=== PATIENT | male | born 1960 | race Hispanic/Latino ===

== ENCOUNTER 2023-05-18 15:05 | Emergency (ER) | payer OTHER ==
[~2023-05-18] VITALS: Ht 177.8 cm; Wt 90.7 kg
[~2023-05-18 15:05] MED LIST: METO25 PO
[2023-05-18] MEDS ORDERED: AZITHROMYCIN 250 MG TABLET PO ONE (17:00)
[2023-05-18 17:06] LABS: BASOPHILS % (AUTO) 0.7 % (0.0-5.0); EOSINOPHILS % (AUTO) 4.9 % (0.0-8.0); HEMATOCRIT 42.9 % (42-54); LYMPHOCYTES % (AUTO) 30.4 % (21.0-51.0); MEAN CORPUSCULAR HEMOGLOBIN 29.8 pg (27.0-33.0); MEAN CORPUSCULAR HGB CONC 33.8 g/dL (32.0-36.0); MEAN CORPUSCULAR VOLUME 88.1 fL (79-99); MONOCYTES % (AUTO) 9.7 % (3.0-13.0); NEUTROPHILS % (AUTO) 53.8 % (40.0-77.0); PLATELET COUNT (AUTO) 315 K/uL (130-400); RED BLOOD CELL COUNT(AUTO) 4.87 MIL/uL (4.50-6.20); RED CELL DISTRIBUTION WIDTH 12.2 % (11.0-15.5); WHITE BLOOD COUNT (AUTO) 11.4 K/uL (4.8-10.8)
[2023-05-18 17:16] LABS: CREATININE 0.9 mg/dL (0.5-1.5); POTASSIUM 4.2 mmol/L (3.5-5.1)
[2023-05-18 17:21] LABS: ALBUMIN 3.8 g/dL (3.5-5.0); TOTAL PROTEIN, SERUM 7.9 g/dL (6.0-8.3)
[2023-05-18] MEDS ORDERED: PSEU120T62 PO (18:36)
[2023-05-18] MEDS ORDERED: AZIT250T9 PO (18:36)
[2023-05-18 18:46] VITALS: BP 128/74
== END 2023-05-18 18:49 | disposition home or self-care (01) ==
LOC: EDH 15:05
DX: J02.0 Streptococcal pharyngitis (principal); R07.81 Pleurodynia; J44.9 Chronic obstructive pulmonary disease, unspecified; I10 Essential (primary) hypertension; E11.9 Type 2 diabetes mellitus without complications; Z20.822 Contact with and (suspected) exposure to COVID-19; Z88.0 Allergy status to penicillin; Z88.1 Allergy status to other antibiotic agents; Z88.8 Allergy status to other drugs, medicaments and biological substances
CPT/HCPCS: 99285; 71045; 87635; 84484; 80053; 85025; 87880; 87804 ×2; 36415; 93005; C9803

== ENCOUNTER → 2023-06-27 | Outpatient (CLI) | payer OTHER ==
[~2023-06-27] MED LIST changes: +AZIT250T9 PO; +PSEU120T62 PO
== END | disposition home or self-care (01) ==
LOC: RAH 13:39
PROVIDERS: ATTEND Internal Medicine Cardiovascular Disease
DX: I11.9 Hypertensive heart disease without heart failure (principal); R07.89 Other chest pain
CPT/HCPCS: 93306

== ENCOUNTER 2023-08-29 10:20 | Emergency (ER) | payer OTHER ==
[~2023-08-29] VITALS: Ht 175.3 cm; Wt 93.9 kg
[2023-08-29] MEDS ORDERED: DiphenhydrAMINE HCL 50 MG/ML VIAL IV ONE (11:30)
[2023-08-29] MEDS ORDERED: FAMOTIDINE 20MG VIAL IV ONE (11:30)
[2023-08-29] MEDS ORDERED: 0.9% NACL 500ML IV.SOLN 500 ML IV ONE (11:30)
[2023-08-29] MEDS ORDERED: SOLU-MEDROL 125MG VIAL IVP ONE (12:30)
[2023-08-29] MEDS ORDERED: CETIRIZINE HCL 5 MG TABLET PO ONE (13:19)
[2023-08-29] MEDS ORDERED: FAMO-136 PO (13:26)
[2023-08-29] MEDS ORDERED: CETI-89 PO (13:26)
[2023-08-29] MEDS ORDERED: PRED20TA3 PO (13:26)
[2023-08-29 13:37] VITALS: BP 122/81; PULSE 100; RESP 16; O2SAT 100
[2023-08-30] MEDS ORDERED: CETIRIZINE HCL 5 MG TABLET PO SCH (09:00)
== END 2023-08-29 13:38 | disposition home or self-care (01) ==
LOC: EDH 10:20
DX: L23.9 Allergic contact dermatitis, unspecified cause (principal); L29.9 Pruritus, unspecified
CPT/HCPCS: 99284; 96374; 96375; J7040; J1200; J3490; J2930; 96361

== ENCOUNTER 2024-01-17 11:47 | Emergency (ER) | payer OTHER ==
[~2024-01-17] VITALS: Ht 177.8 cm; Wt 89.4 kg
[~2024-01-17 11:47] MED LIST changes: +CETI-89 PO; +FAMO-136 PO; +PRED20TA3 PO
[2024-01-17 12:16] VITALS: BP 147/91; PULSE 101; RESP 20
[2024-01-17] MEDS: DIPHENHYDRAMINE HCL 25 MG CAPSULE PO ONE (15:26)
[2024-01-17] MEDS: PREDNISONE 20 MG TABLET PO ONE (15:26)
[2024-01-17] MEDS: FAMOTIDINE 20MG TAB PO ONE (15:26)
[2024-01-17] MEDS ORDERED: PRED20TA3 PO (15:56)
[2024-01-17] MEDS ORDERED: FAMO20TA8 PO (15:56)
== END 2024-01-17 16:10 | disposition home or self-care (01) ==
LOC: EDH 11:47
DX: R21 Rash and other nonspecific skin eruption (principal); E11.9 Type 2 diabetes mellitus without complications; I10 Essential (primary) hypertension; J44.9 Chronic obstructive pulmonary disease, unspecified; Z79.52 Long term (current) use of systemic steroids; Z88.0 Allergy status to penicillin; Z88.1 Allergy status to other antibiotic agents
CPT/HCPCS: 99283; Q0163

== ENCOUNTER 2025-06-18 10:23 | Emergency (ER) | payer OTHER, MEDICARE ==
[~2025-06-18] VITALS: Ht 177.8 cm; Wt 90.7 kg
[~2025-06-18 10:23] MED LIST changes: +FAMO20TA8 PO
[2025-06-18] MEDS: HYDROcodone/APAP 5/325 1 TAB TABLET PO ONE (10:55)
--- NOTE | 2025-06-18 11:10 | NUR ---
ARM SLING APPLIED TO THE RIGHT UPPER EXTREMITY AT THIS TIME, RADIAL PULSE STRONG AND REGULAR, CAP REFILL <3, PATIENT TOLERATED WELL AND VOICED PAIN RELIEF UPON APPLICATION./[place]
[2025-06-18 11:17] VITALS: BP 138/72; PULSE 96; RESP 19; TEMP 97.6; O2SAT 98
[2025-06-18] MEDS ORDERED: LIDO1ADH71 TP (11:23)
[2025-06-18] MEDS ORDERED: DICL20GE TP (11:23)
[2025-06-18] MEDS ORDERED: HYDR-4060 PO (11:23)
[2025-06-18] MEDS ORDERED: MELO-108 PO (11:23)
--- NOTE | 2025-06-18 11:27 | ERN ---
General Chief Complaint: Shoulder Injury/Pain Stated Complaint: RIGHT SHOULDER PAIN Time Seen by MD: 10:25 History of Present Illness Initial Comments 65-year-old male who presents for right shoulder pain. He reports that about two months ago he had pain in his right shoulder that lasted about a week. Since then he has had on and off pains. It increases when he extends the arm at the shoulder. He has limited range of motion due to pain. He denies any fevers, redness, swelling, or other trauma. He has been taking Tylenol regularly. He did try to follow up with his primary doctor, but there was no follow up visit for another month or so prompting him to come here to the ER for the pain. Allergies: Coded Allergies: Penicillins (Unverified Allergy, Unknown, 05/18/23) levofloxacin (Unverified Allergy, Unknown, 05/18/23) Uncoded Allergies: STEROIDS (Allergy, Unknown, 05/18/23) Home Meds Active Scripts Famotidine (Famotidine) 20 Mg Tablet, 20 MG PO BID for 14 Days, #28 TAB Prov:CATARINA TABARES [facility] 01/17/24 Prednisone (Prednisone) 20 Mg Tablet, 2 TAB PO DAILY for 5 Days, #10 TAB 0 Refills Prov:CATARINA TABARES [facility] 01/17/24 Prednisone (Prednisone) 20 Mg Tablet, 1 TAB PO AD for 6 Days, #14 TAB 0 Refills TAKE 1 TAB BY MOUTH THREE TIMES PER DAY X3 DAYS, THEN TAKE 1 TAB BY MOUTH TWICE A DAY X2 DAYS, THEN TAKE 1 TAB BY MOUTH ONCE A DAY X1 DAY. Prov:ROEL CORONADO [facility] 08/29/23 Cetirizine HCl (Zyrtec) 10 Mg Tablet, 10 MG PO DAILY, #7 TAB 0 Refills Prov:ROEL CORONADO [facility] 08/29/23 Famotidine (Pepcid) 20 Mg Tablet, 20 MG PO BID, #14 TAB 0 Refills Prov:ROEL CORONADO [facility] 08/29/23 Pseudoephedrine HCl (Sudafed 12 Hour) 120 Mg Tablet.er, 120 MG PO BID for 5 Days, #10 TAB Prov:LILIYA CIFUENTES 05/18/23 Azithromycin (Azithromycin) 250 Mg Tablet, 250 MG PO DAILY for zpack for 5 Days, #6 TAB Prov:LILIYA CIFUENTES 05/18/23 Metoprolol Tartrate (Lopressor) 25 Mg Tablet, 25 MG PO BID, #60 TAB 2 Refills Prov:OSCAR BARAJAS MD 02/14/15 Past Medical History Past Medical History: COPD, Diabetes-Type II, Hypertension Past Surgical History: Other Surgical History Other: HERNIA Family History Family History: Negative Social History Social History: Negative, Lives with family ROS Dictation CONSTITUTIONAL: No chills, no fever, no weakness, no diaphoresis, no malaise. HEAD/FACE: No signs of trauma. EENT: No eye pain, no blurred vision, no tearing, no double vision, no ear pain, no ear discharge, no nose pain, no nasal congestion, no throat pain, no throat swelling, no mouth pain. RESPIRATORY: No cough, no orthopnea, no SOB, no stridor, no wheezing. CARDIOVASCULAR: No chest pain, no edema, no palpitations, no syncope. GASTROINTESTINAL/ABDOMINAL: No abdominal pain, no constipation, no diarrhea, no nausea, no vomiting. GENITOURINARY: No abnormal discharge, no dysuria, no frequent urination, no hematuria. No complaints of pain in the genitals. MUSCULOSKELETAL: Right shoulder pain INTEGUMENTARY: No change in color, no change in hair/nails, no dryness, no lesion, no lumps, no rash. NEUROLOGICAL/PSYCH: No anxiety, not depressed, no emotional problem, no headache, no numbness, no pre-existing deficit, no history of seizures, no tremors, no weakness. HEMATOLOGIC/LYMPHATIC: Not anemic, no history of blood clots, no apparent bleeding, no bruising, glands not swollen. All Systems Negative, Except as Noted. Physical Exam Physical Exam Dictation VITAL SIGNS: Reviewed. GENERAL APPEARANCE: Alert, oriented x3, no acute distress, obese. HEAD AND FACE: Non-traumatic. EYES: PERRL, pink conjunctivas, eyelid no trauma, anterior chamber clear. EARS: Pinnas intact and no signs of trauma or erythema. Ear canals clear and no discharge. TMs no erythema. NOSE: No discharge, no bleeding. OROPHARYNX: Mouth normal, teeth no caries, tongue pink. Pharynx clear, no erythema. Tonsils no exudates, no abscesses noted. Mucous membrane moist. NECK: Supple, non-tender, no thyromegaly, no masses, no JVD, no bruits. BREAST: Deferred. CHEST: No tenderness, no crepitus, no paradoxical movement, no retractions. LUNGS: Clear, well-ventilated, symmetric, no rales, no wheezing, no rhonchi, no stridor, good breath sounds bilaterally. HEART: Regular rate, regular rhythm, no murmur, no gallops. VASCULAR: No peripheral edema. ABDOMEN: Soft, positive bowel sounds, nondistended, no guarding, nontender, no rebound, no masses no hepatomegaly, no splenomegaly, no Fry's sign, no hernias. RECTAL: Deferred. GENITAL: Deferred. NEUROLOGICAL: Normal speech, gross motor function intact, gross sensory function intact. MUSCULOSKELETAL: Pain tenderness of the right shoulder increased with movement palpation EXTREMITIES: Nontender, full range of motion. SKIN: Color pink, dry, no turgor, no rash, no lacerations, no abrasions, no contusions. LYMPHATICS: Deferred. MDM CC: Right shoulder pain Historian: Patient Comorbidities: Idiopathic pulmonary fibrosis, diabetes type 2, hypertension Differential diagnosis: Bony abnormality, arthritis, rotator cuff injury, other There was no signs of septic joint on clinical exam. No signs of gout. I suspect intra-articular injury or rotator cuff injury. Vital signs are stable No labs indicated Right shoulder x-ray per my independent interpretation shows no arthritis no acute changes. Treatment in ED: IM Toradol, p.o. [place] Plan: Likely soft tissue in nature. We will need to follow up as an outpatient. We will give an orthopedic referral. We will give a prescription for meloxicam and [place] tabs for severe pain. He was placed in a splint here in the ER. ED Course Orders Procedure Category Date Status Time Shoulder Comp 2+Vws Rt RAD 06/18/25 Taken 10:33 Ketorolac PHA 06/18/25 Complete Tromethamine 15mg/Ml 11:00 Hydrocodone/Apap PHA 06/18/25 Complete 5/325 ([place] 5/325mg) 11:00 Ketorolac PHA 06/18/25 Complete Tromethamine 15mg/Ml 11:00 Current Medications Medications (Trade) Dose Ordered Sig/Marie Route PRN Reason Start Time Stop Time Status Last Admin Dose Admin Acetaminophen/ Hydrocodone Bitart (NORco 5/325MG) 1 tab ONCE ONCE PO 06/18/25 11:00 06/18/25 11:01 DC 06/18/25 10:55 Ketorolac Tromethamine (toRADol) 15 mg ONCE ONCE IM 06/18/25 11:00 06/18/25 11:01 DC 06/18/25 10:55 Ketorolac Tromethamine (toRADol) 15 mg ONCE ONCE IV 06/18/25 11:00 06/18/25 10:50 DC Vital Signs Date Time Temp Pulse Resp B/P (MAP) Pulse Ox O2 Delivery O2 Flow Rate FiO2 06/18/25 11:17 97.5 96 19 138/72 98 Room Air* 0 21 06/18/25 10:39 97 19 127/72 99 Room Air* 0 21 06/18/25 10:24 98.4 101 16 140/77 98 Room Air DX & DISP Disposition: Discharge Departure Impression: Primary Impression: Right shoulder pain Condition: Stable Scripts Lidocaine (Lidocaine Pain Relief) 4 % Adh..patch 1 EACH TP BID PRN for PAIN for 10 Days, #10 ADH.PATCH Prov: ANJEL CORONA DO 06/18/25 Diclofenac Sodium (Voltaren Arthritis Pain) 1 % Gel..gram. 20 GM TP BID, #1 TUBE Prov: ANJEL CORONA DO 06/18/25 Hydrocodone/Acetaminophen (Hydrocodon-Acetaminophen 5-325) 5 Mg-325 Mg Tablet 1 TAB PO TIDP PRN for pain for 5 Days, #15 TAB 0 Refills Prov: ANJEL CORONA DO 06/18/25 Meloxicam (Meloxicam) 15 Mg Tablet 15 MG PO DAILY PRN for PAIN for 20 Days, #20 TAB Prov: ANJEL CORONA DO 06/18/25 Additional Instructions: As we discussed, your injury is likely soft tissue in nature. The x-ray does not show any major abnormalities. Wear the sling that you have been provided. Apply ice for 20 minutes three or 4 times per day for the next few days. I have prescribed meloxicam, which is a nonsteroidal anti-inflammatory. Take this once per day for pain and inflammation. I have prescribed [place] tabs. Use as needed for significant pain. I have prescribed lidocaine patches. You can apply this twice per day as needed. I have prescribed Voltaren gel. You can apply this twice per day as needed. As we discussed, you likely need to follow up with the orthopedist. I have given you a referral. Call for an appointment. Please note that you may need to call your primary doctor for an orthopedic referral. Referrals: ASHLEY SAMSON MD (PCP) ANJEL CORONA DO Jun 18, 2025 11:27
--- NOTE | 2025-06-18 11:49 | HMCIMG ---
EXAM: CR right Shoulder, 2 View. CLINICAL HISTORY: pain COMPARISON: None provided. FINDINGS: BONES: No acute fracture or aggressive appearing osseous lesion. JOINTS: No dislocation. The joint spaces are normal. SOFT TISSUES: The soft tissues are unremarkable. IMPRESSION: No acute abnormality evident on examination of the right shoulder. No acute fracture or dislocation. /[place]
== END 2025-06-18 11:31 | disposition home or self-care (01) ==
LOC: EDH 10:23
DX: M25.511 Pain in right shoulder (principal); E11.9 Type 2 diabetes mellitus without complications; I10 Essential (primary) hypertension; J44.9 Chronic obstructive pulmonary disease, unspecified; Z79.52 Long term (current) use of systemic steroids; Z79.899 Other long term (current) drug therapy; Z88.0 Allergy status to penicillin; Z88.1 Allergy status to other antibiotic agents
CPT/HCPCS: 99283; 73030; 96372; J1885